=== PATIENT | female | born 1975 | race American Indian/Alaskan Native ===

== ENCOUNTER 2017-06-18 01:59 | Emergency (ER) | payer SELFPAY ==
[2017-06-18 03:03] LABS: Basophils % (Auto) 0.4 % (0.0-1.8); Eosinophils % (Auto) 0.9 % (0.0-4.3); Hematocrit 41.7 % (30.3-42.9); Hemoglobin 14.5 gm/dl (10.1-14.3); Mean Corpuscular HGB Conc 35 % (30-34); Mean Corpuscular Hemoglobin 31 pg (28-32); Mean Corpuscular Volume 90 fl (79-97); Platelet Count 177 K/mm3 (140-440); Red Blood Count 4.63 M/mm3 (3.65-5.03); Red Cell Distribution Width 13.4 % (13.2-15.2); White Blood Count 10.5 K/mm3 (4.5-11.0)
[2017-06-18 03:13] LABS: Anion Gap 19 mmol/L; BUN/Creatinine Ratio 18.33; Blood Urea Nitrogen 11 mg/dL (7-17); Calcium 9.3 mg/dL (8.4-10.2); Carbon Dioxide 25 mmol/L (22-30); Chloride 97.3 mmol/L (98-107); Glucose 117 mg/dL (65-100); Potassium 3.6 mmol/L (3.6-5.0); Sodium 138 mmol/L (137-145)
[2017-06-18 03:15] LABS: INR 0.98 (0.87-1.13)
[2017-06-18 03:16] LABS: Partial Thromboplastin Time 28.2 Sec. (24.2-36.6)
--- NOTE | 2017-06-18 09:16 | Emergency Department Report ---
HPI - General Chief Complaint: Chest Pain Time Seen by Provider: 06/18/17 09:01 - HPI HPI: Room 6 The patient is a 41-year-old female presenting with a chief complaint of left shoulder pain and left chest discomfort. The patient states for 1 month she's had intermittent pain and left shoulder as well as discomfort in the left chest that feels like pins and needles. Patient denies shortness of breath, nausea/ vomiting or diaphoresis. The patient states at times it feels as though her whole body goes numb. The patient states she's never had a stress test Location: Left chest, left shoulder Duration: Intermittent 1 month Quality: Pins and needles Severity: Moderate Modifying factors: [see above] Context: [see above] Mode of transportation: [not driving] ED Past Medical Hx - Past Medical History Previous Medical History?: Yes Hx Hypertension: Yes Hx Psychiatric Treatment: Yes (ANXIETY) - Surgical History Past Surgical History?: No - Family History Family history: no significant - Social History Smoking Status: Never Smoker Substance Use Type: None (denies illicit drug use) ED Review of Systems ROS: Stated complaint: CHEST PAIN, HIGH BLOOD SUGAR Other details as noted in HPI Comment: All other systems reviewed and negative Constitutional: denies: chills, fever Eyes: denies: eye pain, eye discharge, vision change ENT: denies: ear pain, throat pain Respiratory: denies: cough, shortness of breath, wheezing Cardiovascular: chest pain Endocrine: no symptoms reported Gastrointestinal: denies: abdominal pain, nausea, diarrhea Genitourinary: denies: urgency, dysuria, discharge Musculoskeletal: denies: back pain, joint swelling, arthralgia Skin: denies: rash, lesions Neurological: denies: headache, weakness, paresthesias Psychiatric: denies: anxiety, depression Hematological/Lymphatic: denies: easy bleeding, easy bruising Physical Exam - Physical Exam Vital Signs: Vital Signs 06/18/17 06/18/17 06/18/17 02:21 05:32 07:59 Temperature 98.3 F 97.9 F Pulse Rate 79 77 Respiratory 20 20 16 Rate Blood Pressure 185/91 169/98 O2 Sat by Pulse 98 98 100 Oximetry Physical Exam: GENERAL: The patient is well-developed well-nourished female lying on stretcher not appearing to be in acute distress. [] HEENT: Normocephalic. Atraumatic. Extraocular motions are intact. Patient has moist mucous membranes. NECK: Supple. Trachea midline CHEST/LUNGS: Clear to auscultation. There is no respiratory distress noted. HEART/CARDIOVASCULAR: Regular. There is no tachycardia. There is no gallop rub or murmur. ABDOMEN: Abdomen is soft, nontender. Patient has normal bowel sounds. There is no abdominal distention. SKIN: There is no rash. There is no edema. There is no diaphoresis. NEURO: The patient is awake, alert, and oriented. The patient is cooperative. The patient has normal speech MUSCULOSKELETAL: There is no evidence of acute injury. ED Course Vital Signs 06/18/17 06/18/17 06/18/17 02:21 05:32 07:59 Temperature 98.3 F 97.9 F Pulse Rate 79 77 Respiratory 20 20 16 Rate Blood Pressure 185/91 169/98 O2 Sat by Pulse 98 98 100 Oximetry ED Medical Decision Making - Lab Data Result diagrams: 06/18/17 02:33 06/18/17 02:33 Laboratory Tests 06/18/17 06/18/17 06/18/17 02:07 02:33 02:33 WBC 10.5 RBC 4.63 Hgb 14.5 H Hct 41.7 MCV 90 MCH 31 MCHC 35 H RDW 13.4 Plt Count 177 Lymph % (Auto) 19.9 [place] % (Auto) 7.5 H Eos % (Auto) 0.9 Baso % (Auto) 0.4 Lymph # 2.1 [place] # 0.8 Eos # 0.1 Baso # 0.0 Seg Neutrophils % 71.3 H Seg Neutrophils # 7.4 PT INR APTT Sodium Potassium Chloride Carbon Dioxide Anion Gap BUN Creatinine Estimated GFR BUN/Creatinine Ratio Glucose POC Glucose 109 H Calcium Troponin T HCG, Qual Negative 06/18/17 06/18/17 06/18/17 02:33 02:33 05:55 WBC RBC Hgb Hct MCV MCH MCHC RDW Plt Count Lymph % (Auto) [place] % (Auto) Eos % (Auto) Baso % (Auto) Lymph # [place] # Eos # Baso # Seg Neutrophils % Seg Neutrophils # PT 12.9 INR 0.98 APTT 28.2 Sodium 138 Potassium 3.6 Chloride 97.3 L Carbon Dioxide 25 Anion Gap 19 BUN 11 Creatinine 0.6 L Estimated GFR > 60 BUN/Creatinine Ratio 18.33 Glucose 117 H POC Glucose Calcium 9.3 Troponin T < 0.010 < 0.010 HCG, Qual 06/18/17 07:50 WBC RBC Hgb Hct MCV MCH MCHC RDW Plt Count Lymph % (Auto) [place] % (Auto) Eos % (Auto) Baso % (Auto) Lymph # [place] # Eos # Baso # Seg Neutrophils % Seg Neutrophils # PT INR APTT Sodium Potassium Chloride Carbon Dioxide Anion Gap BUN Creatinine Estimated GFR BUN/Creatinine Ratio Glucose POC Glucose Calcium Troponin T < 0.010 HCG, Qual - EKG Data -: EKG Interpreted by Me EKG shows normal: sinus rhythm Rate: normal - EKG Data When compared to previous EKG there are: previous EKG unavailable Interpretation: nonspecific ST-T wave dre (T-wave inversion in lead 3) - Radiology Data Radiology results: image reviewed (chest x-ray) interpreted by me: Chest x-ray-no focal infiltrates, no pneumothorax - Differential Diagnosis ACS, GERD, pericarditis Critical care attestation.: If time is entered above; I have spent that time in minutes in the direct care of this critically ill patient, excluding procedure time. ED Disposition Clinical Impression: Chest pain Disposition: 09 OP ADMIT IP TO THIS HOSP Is pt being admited?: Yes Does the pt Need Aspirin: Yes Condition: Fair Instructions: Chest Pain (ED) Referrals: PRIMARY CARE, [Primary Care Provider] - 3-5 Days Time of Disposition: 09:50 (hospitalist paged)
[2017-06-18] MEDS ORDERED: ASPIRIN PO ONE (09:27)
[2017-06-18] MEDS ORDERED: ZOFRAN IV PRN (10:11)
[2017-06-18] MEDS ORDERED: MORPHINE IV PRN (10:11)
[2017-06-18] MEDS ORDERED: TYLENOL PO PRN (10:11)
[2017-06-18] MEDS ORDERED: SODIUM CHLORIDE FLUSH SYRINGE 10 ML IV PRN (10:11)
[2017-06-18] MEDS ORDERED: DULCOLAX PR PRN (10:11)
[2017-06-18] MEDS ORDERED: NITROSTAT SL PRN (10:11)
[2017-06-18] MEDS ORDERED: MILK OF MAGNESIA PO PRN (10:11)
[2017-06-18 10:47] LABS: Basophils % (Auto) 0.2 % (0.0-1.8); Eosinophils % (Auto) 0.2 % (0.0-4.3); Hemoglobin 14.2 gm/dl (10.1-14.3); Mean Corpuscular HGB Conc 34 % (30-34); Mean Corpuscular Hemoglobin 30 pg (28-32); Mean Corpuscular Volume 90 fl (79-97); Platelet Count 189 K/mm3 (140-440); Red Blood Count 4.69 M/mm3 (3.65-5.03); Red Cell Distribution Width 13.2 % (13.2-15.2); White Blood Count 9.6 K/mm3 (4.5-11.0)
--- NOTE | 2017-06-18 11:08 | XRay Report ---
CHEST ONE VIEW INDICATION: Chest pain. COMPARISON: None similar at this institution. FINDINGS: Portable, single, frontal chest radiograph demonstrates normal cardiomediastinal silhouette. Clear lungs. Unremarkable bones. Extrinsic EKG leads. CONCLUSION: No acute disease in the chest. Thank you for the opportunity to participate in this patient's care.
[2017-06-18 11:12] LABS: Anion Gap 19 mmol/L; Blood Urea Nitrogen 8 mg/dL (7-17); Calcium 9.1 mg/dL (8.4-10.2); Carbon Dioxide 25 mmol/L (22-30); Cholesterol 209 mg/dL (50-199); Glucose 107 mg/dL (65-100); HDL Cholesterol 57 mg/dL (40-59); LDL Cholesterol,Direct 139 mg/dL (50-130); Sodium 139 mmol/L (137-145); Triglycerides 66 mg/dL (2-149)
[2017-06-18] MEDS ORDERED: LEXISCAN IV ONE ×2 (11:43→12:00)
--- NOTE | 2017-06-18 11:50 | History and Physical Report ---
History of Present Illness Date of examination: 06/18/17 Date of admission: 06/18/17 10:11 Chief complaint: Chest pain History of present illness: Patient is a 41-year-old male with past medical history history except for hypertension, possible anxiety who presents to the hospital complaining of chest pain and left-sided around the shoulder intermittently she reports it feels like pins and needles on exam exacerbated by anxiety. She denies any shortness of breath, nausea, vomiting, diarrhea. She reports that this has been ongoing for about a month. She reports that sometimes she feels like her whole left side is numb. Also this moves to the right side occasionally. She denies any palpitation. She denies any sensation of impending doom. She had this time states that she is chest pain-free but asking for medication for anxiety. ROS Constitutional: No fever, fatigue or weight loss. Skin: No rash. Eyes: No recent vision problems or eye pain. ENT: No congestion, ear pain, or sore throat. Endocrine: No thyroid problems. Cardiovascular: No chest pain. Respiratory: No cough, shortness of breath, congestion, or wheezing. Gastrointestinal: No abdominal pain, nausea, vomiting, or diarrhea. Genitourinary: No dysuria. Musculoskeletal: No joint swelling. Neurologic: No seizures. Hematologic: No unusual bruising or bleeding. Psychiatric: No psychiatric problems, hallucinations or depression. All other systems reviewed and otherwise negative. Past History Past Medical History: hypertension Past Surgical History: No surgical history Social history: no significant social history, lives with family, full code Family history: no significant family history Medications and Allergies Allergies Allergy/AdvReac Type Severity Reaction Status Date / Time No Known Allergies Allergy Verified 06/18/17 02:19 Home Medications Medication Instructions Recorded Confirmed Last Taken Type Bisoprolol/Hctz [Ziac 2.5-6.25] 1 tab PO QDAY 06/18/17 06/18/17 06/17/17 History Active Meds: Active Medications Acetaminophen (Tylenol) 650 mg PO Q4H PRN PRN Reason: Pain MILD(1-3)/Fever >100.5/SPICER Atorvastatin Calcium (Lipitor) 20 mg PO QHS KIMBERLEE Bisacodyl (Dulcolax) 10 mg [place] QDAY PRN PRN Reason: Constipation unrelieved by MOM Bisoprolol Fumarate (Ziac 2.5-6.25) 1 each PO QDAY KIMBERLEE Magnesium Hydroxide (Milk Of Magnesia) 30 ml PO Q4H PRN PRN Reason: Constipation Morphine Sulfate (Morphine) 2 mg IV Q5MIN PRN PRN Reason: Chest Pain Nitroglycerin (Nitrostat) 0.4 mg SL Q5M PRN PRN Reason: Chest Pain Ondansetron HCl (Zofran) 4 mg IV Q8H PRN PRN Reason: N/V unrelieved by Reglan Regadenoson (Lexiscan) 0.4 mg IV ONCE ONE Stop: 06/18/17 12:01 Sodium Chloride (Sodium Chloride Flush Syringe 10 Ml) 10 ml IV PRN PRN PRN Reason: LINE FLUSH Exam - Physical Exam Narrative exam: VITAL SIGNS: Reviewed. GENERAL: The patient appeared well nourished and normally developed. Morbidly obese. Vital signs as documented. HEAD: No signs of head trauma. EYES: Pupils are equal. Extraocular motions intact. EARS: Hearing grossly intact. MOUTH: Oropharynx is normal. NECK: No adenopathy, no JVD. CHEST: Chest with clear breath sounds bilaterally. No wheezes, rales, or rhonchi. CARDIAC: Regular rate and rhythm. S1 and S2, without murmurs, gallops, or rubs. VASCULAR: No Edema. Peripheral pulses normal and equal in all extremities. ABDOMEN: Soft, without detectable tenderness. No sign of distention. No rebound or guarding, and no masses palpated. Bowel Sounds normal. MUSCULOSKELETAL: Good range of motion of all major joints. Extremities without clubbing, cyanosis or edema. NEUROLOGIC EXAM: Alert and oriented x 3. No focal sensory or strength deficits. Speech normal. Follows commands. PSYCHIATRIC: Mood normal. SKIN: No rash or lesions. - Constitutional Vitals: Temp Pulse Resp BP Pulse Ox 97.9 F 87 16 175/87 92 06/18/17 05:32 06/18/17 10:01 06/18/17 10:01 06/18/17 10:01 06/18/17 10:01 Results - Labs CBC & Chem 7: 06/18/17 10:29 06/18/17 10:29 Labs: Laboratory Last Values WBC 9.6 K/mm3 (4.5-11.0) 06/18/17 10:29 RBC 4.69 M/mm3 (3.65-5.03) 06/18/17 10:29 Hgb 14.2 gm/dl (10.1-14.3) 06/18/17 10: Hct 42.0 % (30.3-42.9) 06/18/17 10:29 MCV 90 fl (79-97) 06/18/17 10:29 MCH 30 pg (28-32) 06/18/17 10: MCHC 34 % (30-34) 06/18/17 10:29 RDW 13.2 % (13.2-15.2) 06/18/17 10:29 Plt Count 189 K/mm3 (140-440) 06/18/17 10: Lymph % (Auto) 15.6 % (13.4-35.0) 06/18/17 10: [place] % (Auto) 6.5 % (0.0-7.3) 06/18/17 10: Eos % (Auto) 0.2 % (0.0-4.3) 06/18/17 10:29 Baso % (Auto) 0.2 % (0.0-1.8) 06/18/17 10: Lymph # 1.5 K/mm3 (1.2-5.4) 06/18/17 10: [place] # 0.6 K/mm3 (0.0-0.8) 06/18/17 10:29 Eos # 0.0 K/mm3 (0.0-0.4) 06/18/17 10: Baso # 0.0 K/mm3 (0.0-0.1) 06/18/17 10:29 Seg Neutrophils % 77.5 % (40.0-70.0) H 06/18/17 10:29 Seg Neutrophils # 7.5 K/mm3 (1.8-7.7) 06/18/17 10:29 PT 12.9 Sec. (12.2-14.9) 06/18/17 02:33 INR 0.98 (0.87-1.13) 06/18/17 02:33 APTT 28.2 Sec. (24.2-36.6) 06/18/17 02:33 Sodium 139 mmol/L (137-145) 06/18/17 10:29 Potassium 4.0 mmol/L (3.6-5.0) 06/18/17 10:29 Chloride 99.0 mmol/L (98-107) 06/18/17 10:29 Carbon Dioxide 25 mmol/L (22-30) 06/18/17 10:29 Anion Gap 19 mmol/L 06/18/17 10:29 BUN 8 mg/dL (7-17) 06/18/17 10:29 Creatinine 0.5 mg/dL (0.7-1.2) L 06/18/17 10:29 Estimated GFR > 60 ml/min 06/18/17 10:29 BUN/Creatinine Ratio 16.00 % 06/18/17 10:29 Glucose 107 mg/dL (65-100) H 06/18/17 10:29 POC Glucose 109 (70-105) H 06/18/17 02:07 Calcium 9.1 mg/dL (8.4-10.2) 06/18/17 10:29 Troponin T < 0.010 ng/mL (0.00-0.029) 06/18/17 07:50 Triglycerides 66 mg/dL (2-149) 06/18/17 10:29 Cholesterol 209 mg/dL (50-199) H 06/18/17 10:29 LDL Cholesterol Direct 139 mg/dL (50-130) H 06/18/17 10:29 HDL Cholesterol 57 mg/dL (40-59) 06/18/17 10:29 Cholesterol/HDL Ratio 3.66 % 06/18/17 10:29 HCG, Qual Negative (Negative) 06/18/17 02:33 - Imaging and Cardiology Chest x-ray: image reviewed (no acute pathology noted) Imaging and Cardiology: EKG reveals normal sinus rhythm Assessment and Plan Assessment and plan: Patient is a 41-year-old male with past medical history history except for hypertension, possible anxiety who presents to the hospital complaining of chest pain and left-sided around the shoulder intermittently she reports it feels like pins and needles on exam exacerbated by anxiety. She denies any shortness of breath, nausea, vomiting, diarrhea. She reports that this has been ongoing for about a month. She reports that sometimes she feels like her whole left side is numb. Also this moves to the right side occasionally. She denies any palpitation. She denies any sensation of impending doom. She had this time states that she is chest pain-free but asking for medication for anxiety. Atypical chest pain * Likely costochondritis, nevertheless trend cardiac enzymes. Aspirin, lipid profile. Statin therapy. Anxiety * Unknown etiology. We'll do a trial of Xanax Hypertensive urgency * Restart home medication. Advised patient on weight loss and reduce salt intake. DVT and GI prophylaxis Plan of care discussed with the patient Brazilian interpretation used anticipate with discharge exam in a.m. or later today if stress test is negative Advance Directives: Yes Plan of care discussed with patient/family: Yes
--- NOTE | 2017-06-18 14:23 | Discharge Summary ---
Providers - Providers Date of Admission: 06/18/17 10:11 Date of discharge: 06/18/17 Attending physician: BRIANA GIBSON MD Primary care physician: COMPANY SECR[employer]ARY Hospitalization Reason for admission: chest pain Condition: Fair Hospital course: Patient is a 41-year-old male with past medical history history except for hypertension, possible anxiety who presents to the hospital complaining of chest pain and left-sided around the shoulder intermittently she reports it feels like pins and needles on exam exacerbated by anxiety. She denies any shortness of breath, nausea, vomiting, diarrhea. She reports that this has been ongoing for about a month. She reports that sometimes she feels like her whole left side is numb. Also this moves to the right side occasionally. She denies any palpitation. She denies any sensation of impending doom. She had this time states that she is chest pain-free but asking for medication for anxiety. Atypical chest pain * Likely costochondritis, stress test was negative Anxiety * Recommend outpatient evaluation by PCP. We'll do a trial of Xanax Hypertensive urgency * Restart home medication. Advised patient on weight loss and reduce salt intake. Morbid obesity * Advised on weightloss. BMI 47.6 Extensive discussion >15 mins, Resources provided. Disposition: DC-01 TO HOME OR SELFCARE Time spent for discharge: 35 mins Core Measure Documentation - Palliative Care Palliative Care/ Comfort Measures: Not Applicable - Core Measures Any of the following diagnoses?: none - VTE Discharge Requirements Deep Vein Thrombosis/Pulmonary Embolism Present on Admission: No Exam - Physical Exam Narrative exam: VITAL SIGNS: Reviewed. GENERAL: The patient appeared well nourished and normally developed. Morbidly obese. Vital signs as documented. HEAD: No signs of head trauma. EYES: Pupils are equal. Extraocular motions intact. EARS: Hearing grossly intact. MOUTH: Oropharynx is normal. NECK: No adenopathy, no JVD. CHEST: Chest with clear breath sounds bilaterally. No wheezes, rales, or rhonchi. CARDIAC: Regular rate and rhythm. S1 and S2, without murmurs, gallops, or rubs. VASCULAR: No Edema. Peripheral pulses normal and equal in all extremities. ABDOMEN: Soft, without detectable tenderness. No sign of distention. No rebound or guarding, and no masses palpated. Bowel Sounds normal. MUSCULOSKELETAL: Good range of motion of all major joints. Extremities without clubbing, cyanosis or edema. NEUROLOGIC EXAM: Alert and oriented x 3. No focal sensory or strength deficits. Speech normal. Follows commands. PSYCHIATRIC: Mood normal. SKIN: No rash or lesions. - Constitutional Vitals: Temp Pulse Resp BP Pulse Ox 97.9 F 81 16 151/82 92 06/18/17 05:32 06/18/17 12:13 06/18/17 10:01 06/18/17 12:13 06/18/17 10:01 Plan Activity: advance as tolerated, fall precautions Diet: low fat Special Instructions: record daily BP diary Follow up with: PRIMARY CARE, [Primary Care Provider] - 3-5 Days Prescriptions: Bisoprolol/Hctz [Ziac 2.5-6.25] 1 tab PO QDAY #30 tablet
[2017-06-18 15:18] VITALS: BP 134/77
--- NOTE | 2017-06-19 02:39 | Treadmill Report ---
ORDERING PHYSICIAN: Cherri Lezama M.D. INDICATION: Chest pain. FINDINGS: There is no scintigraphic evidence of myocardial ischemia and the left ventricle is normal in size and systolic function. The left ventricular ejection fraction is measured at 69%. Normal wall motion and wall thickening is noted on gated imaging. CONCLUSION: Normal perfusion scan. JOB# [id number] LIBRADO/ESA
[2017-06-19] MEDS ORDERED: ZIAC 2.5-6.25 PO SCH (10:10)
== END 2017-06-18 15:26 | disposition home or self-care (01) ==
LOC: ED 01:59 → UNDOADMIN 10:11 → 4A 10:11 → ED 15:26
DX: R07.89 Other chest pain (principal); I10 Essential (primary) hypertension
CPT/HCPCS: 36415; 71010; 78452; 80048; 80061; 82962; 84484; 84703; 85025; 85610; 85730; 93005; 93010; 93017; 96374; 99284; A9502; J2785